=== PATIENT | female | born 1975 | race Hispanic/Latino ===

== ENCOUNTER 2024-06-13 07:27 | Emergency (ER) | payer SELFPAY ==
[~2024-06-13] VITALS: Ht 147.3 cm; Wt 101.2 kg
[2024-06-13 08:12] LABS: BASOPHILS # (AUTO) 0.01 K/uL (0.00-0.20); BASOPHILS % (AUTO) 0.1 % (0.0-5.0); EOSINOPHILS # (AUTO) 0.01 K/uL (0.00-0.70); EOSINOPHILS % (AUTO) 0.1 % (0.0-8.0); HEMATOCRIT 43.2 % (36-48); IMMATURE GRANULOCYTE ABSOLUTE 0.03 K/uL (0-1); LYMPHOCYTES # (AUTO) 1.2 K/uL (1.0-4.8); LYMPHOCYTES % (AUTO) 16.7 % (21.0-51.0); MEAN CORPUSCULAR HEMOGLOBIN 31.2 pg (27.0-33.0); MEAN CORPUSCULAR HGB CONC 33.6 g/dL (32.0-36.0); MEAN CORPUSCULAR VOLUME 92.9 fL (79-99); MONOCYTES # (AUTO) 0.4 K/uL (0.1-1.0); MONOCYTES % (AUTO) 5.8 % (3.0-13.0); NEUTROPHILS # (AUTO) 5.4 K/uL (1.8-7.7); NEUTROPHILS % (AUTO) 76.9 % (40.0-77.0); PLATELET COUNT (AUTO) 260 K/uL (130-400); RED BLOOD CELL COUNT(AUTO) 4.65 MIL/uL (4.00-5.50); RED CELL DISTRIBUTION WIDTH 12.8 % (11.0-15.5)
[2024-06-13] MEDS: Solu-medROL 125MG VIAL IVP ONE (08:17)
[2024-06-13] MEDS: FAMOTIDINE 20MG VIAL IV ONE (08:17)
[2024-06-13] MEDS: 0.9%NACL 1000ML 1,000 ML IV ONE (08:17)
[2024-06-13] MEDS: DiphenhydrAMINE HCL 50 MG/ML VIAL IV ONE (08:17)
[2024-06-13 08:25] LABS: CREATININE 1.1 mg/dL (0.5-1.0); POTASSIUM 3.8 mmol/L (3.5-5.1)
[2024-06-13] MEDS ORDERED: PRED20TA3 PO (10:19)
[2024-06-13] MEDS ORDERED: EPIN0.3P3 IJ (10:19)
[2024-06-13 10:25] VITALS: BP 139/91; PULSE 91; RESP 18; TEMP 99.9; O2SAT 99
== END 2024-06-13 10:51 | disposition home or self-care (01) ==
LOC: EDH 07:27
DX: L50.0 Allergic urticaria (principal); T36.95XA Adverse effect of unspecified systemic antibiotic, initial encounter; Y92.89 Other specified places as the place of occurrence of the external cause
CPT/HCPCS: 99284; 96374; 96361; 96375; 80048; 85025; 36415; 93005; J1200; J3490; J7030; J2919

== ENCOUNTER 2024-11-27 18:14 | Emergency (ER) | payer SELFPAY ==
[~2024-11-27] VITALS: Ht 147.3 cm; Wt 91.2 kg
[~2024-11-27 18:14] MED LIST: EPIN0.3P3 IJ; PRED20TA3 PO
--- NOTE | 2024-11-27 19:37 | ERN ---
General Chief Complaint: Abnormal Labs Stated Complaint: ABNORMAL LABS Time Seen by MD: 18:22 Time Seen by Midlevel: 18:22 Source: patient History of Present Illness Initial Comments 49-year-old female who presents to the emergency department referred from PCP's office due to high glucose. Patient reports she has been taking her mothers Farxiga off and on for the past month. Patient's lab work was done on 11/13/2024 at PCP's office and was sent to the ER today due to hyperglycemia and ketones in the urine. The patient reports occasional blurry vision, frequent UTIs but denies any current symptoms, chest pain, abdominal pain, nausea, vomiting or further associated symptoms. Allergies: Coded Allergies: metronidazole (Unverified Allergy, Unknown, 11/27/24) Home Meds Active Scripts Cephalexin (Cephalexin) 500 Mg Tablet, 1 TAB PO BID for 7 Days, #14 TAB 0 Refills Prov:BRITTON SINGH 11/27/24 Epinephrine (Epipen 2-Desmond) 0.3 Mg/0.3 Ml Auto.injct, 0.3 MG IJ ONCE, #1 CARTRIDGE Prov:LISA MACIEL MD 06/13/24 Prednisone (Prednisone) 20 Mg Tablet, 20 MG PO DAILY for 5 Days, #5 TAB Prov:LISA MACIEL MD 06/13/24 Past Medical History Past Medical History: Diabetes-Type II Past Surgical History: None ROS Dictation Constitutional: Negative for fever,chills, and weight loss Eyes: Negative for injury, pain,redness, and discharge ENT: Negative for injury,pain or swelling Cardiovascular: Negative for chest pain, palpitations, and edema Respiratory: Negative for shortness of breath, cough, and wheezing, Abdomen/GI: Negative for abdominal pain, nausea, vomiting, diarrhea, and constipation Back: Negative for injury and pain : Negative for painful urination, bleeding or discharge MS/Extremity: Negative for injury and deformity Skin: Negative for rash, and discoloration Neuro: Negative for headache, weakness, numbness, tingling, and seizure Psych: Negative for suicide ideation, homicidal ideation, and hallucinations Physical Exam Physical Exam Dictation General: awake, alert, no acute distress Head/Face: Normocephalic, atraumatic Eyes: PERRL, EOMI, normal conjunctiva ENT: oral cavity clear, oral mucosa moist Neck: Supple, normal range of motion Cardiovascular: RRR, normal S1/S2 Respiratory: CTAB, no respiratory distress, no rales or wheezes Abdomen: Soft, non-tender, non-distended, normal bowel sounds, no guarding or rebound. Skin: Warm, dry, normal turgor, no rash MS/Extremity: Pulses equal, no cyanosis, neurovascular intact, FROM Neuro: COAx4, GCS 15, strength 5/5, CN 2-12 intact, normal cerebellar exam, normal gait Psych: Normal behavior, mood, and affect normal Results Laboratory and Microbiology Lab and Micro Result Laboratory Tests Test 11/27/24 20:05 11/27/24 21:39 White Blood Count 5.9 K/uL (4.8-10.8) Red Blood Count 4.74 MIL/uL (4.00-5.50) Hemoglobin 14.5 g/dL (12.0-16.0) Hematocrit 43.8 % (36-48) Mean Corpuscular Volume 92.4 fL (79-99) Mean Corpuscular Hemoglobin 30.6 pg (27.0-33.0) Mean Corpuscular Hemoglobin Concent 33.1 g/dL (32.0-36.0) Red Cell Distribution Width 12.3 % (11.0-15.5) Platelet Count 238 K/uL (130-400) Mean Platelet Volume 10.2 fL (7.5-10.5) Immature Granulocyte % (Auto) 0.3 % (0-1) Neutrophils (%) (Auto) 38.4 % (40.0-77.0) L Lymphocytes (%) (Auto) 50.7 % (21.0-51.0) Monocytes (%) (Auto) 7.3 % (3.0-13.0) Eosinophils (%) (Auto) 2.5 % (0.0-8.0) Basophils (%) (Auto) 0.8 % (0.0-5.0) Neutrophils # (Auto) 2.3 K/uL (1.8-7.7) Lymphocytes # (Auto) 3.0 K/uL (1.0-4.8) Monocytes # (Auto) 0.4 K/uL (0.1-1.0) Eosinophils # (Auto) 0.15 K/uL (0.00-0.70) Basophils # (Auto) 0.05 K/uL (0.00-0.20) Absolute Immature Granulocyte (auto 0.02 K/uL (0-1) Nucleated Red Blood Cells 0.0 % (0.0-0.19) Urine Color LIGHT-YELLOW (YELLOW) Urine Appearance CLOUDY (CLEAR) H Urine pH 6.5 (5.0-8.0) Urine Specific Mcconnell 1.019 (1.001-1.031) Urine Protein NEGATIVE mg/dL (NEGATIVE) Urine Glucose (UA) >=1000 mg/dL (NEGATIVE) H Urine Ketones 40 mg/dL (NEGATIVE) H Urine Occult Blood NEGATIVE (NEGATIVE) Urine Nitrate NEGATIVE (NEGATIVE) Urine Bilirubin NEGATIVE mg/dL (NEGATIVE) Urine Urobilinogen 0.2 mg/dL (0.2-1.0) Urine Leukocyte Esterase 500 Hamida/uL (NEGATIVE) H Urine RBC 11-25 /HPF (0-1) H Urine WBC 51-100 /HPF (0-1) H Urine Squamous Epithelial Cells FEW /HPF (0-2) Urine Other Crystals (Auto) 2 /HPF (None Seen) Urine Bacteria RARE /HPF (None Seen) Urine Yeast RARE /HPF (None Seen) Sodium Level 139 mmol/L (136-145) Potassium Level 3.9 mmol/L (3.5-5.1) Chloride Level 99 mmol/L (101-111) L Carbon Dioxide Level 29 mmol/L (21-32) Blood Urea Nitrogen 12 mg/dL (7-18) Creatinine 0.9 mg/dL (0.5-1.0) Glomerular Filtration Rate Calc 79 mL/min (>90) Random Glucose 309 mg/dL (70-105) H Total Calcium 9.2 mg/dL (8.5-10.1) Blood Gas Specimen Type Venous Arterial Blood Oxygen Saturation 40.4 % (94.0-98.0) L Venous Blood pH 7.378 (7.320-7.430) Venous Blood pCO2 at Patient Temp 39 (38-54) Venous Blood pO2 at Patient Temp 23.5 mmHg (23.0-48.0) Venous Blood HCO3 22.2 (22.0-29.0) Venous Blood Base Excess -2.6 (-2.0-3.0) L Blood Gas Temperature 37.0 CELSIUS (35.5-37.0) Blood Gas Vent Mode ROOMAIR (ROOM AIR) FiO2 21.0 % Blood Gas Specimen Comment RN REINA Labs Reviewed?: Yes MDM MDM: Differential diagnosis: Hyperglycemia, DKA, new onset diabetes, UTI Rationale: 49-year-old female who presents to the emergency department referred from PCP's office due to high glucose. Patient reports she has been taking her mothers Farxiga off and on for the past month. Patient's lab work was done on 11/13/2024 at PCP's office and was sent to the ER today due to hyperglycemia and ketones in the urine. The patient reports occasional blurry vision, frequent UTIs but denies any current symptoms, chest pain, abdominal pain, nausea, vomiting or further associated symptoms. Per physical examination patient is in no acute distress, normal examination. Labs obtained CBC normal, chemistry shows hyperglycemia with glucose of 309. UA shows ketones and glucose, positive for urinary tract infection. VBG normal pH, normal bicarb. No indication of patient being in DKA. Patient was educated on findings, and diagnosis. She was administered IV fluids, Rocephin, and insulin in the ED. Admission versus outpatient discharge was discussed with patient. Patient verbalized she did not want to be admitted and would follow up with PCP outpatient tomorrow. She was educated on the importance of follow up with her PCP tomorrow. Return to the emergency department if any worsening symptoms. Patient verbalized understanding and is stable for discharge. There are no social concerns with this patient. I independently interpreted the test that were performed, results were reviewed by me and considered findings on radiology if ordered. Medical management and examination interpretation discussions were had by me with other qualified healthcare professionals as indicated for the patient's care. ED Course Orders Procedure Category Date Status Time Cbc With Differential LAB 11/27/24 Complete 18:27 Basic Metabolic Panel LAB 11/27/24 Complete 18:27 Urinalysis LAB 11/27/24 Complete W/Microscopic 18:27 Bedside Glucose CPOE 11/27/24 Transmitted Fingerstick 18:28 Culture Urine MARVIN 11/27/24 In Process 20:27 0.9%Nacl 1000ml (Ns PHA 11/27/24 Complete 1000ml) 21:00 Venous Blood Gas RT 11/27/24 Transmitted 20:40 Ceftriaxone 1g Vial PHA 11/27/24 Complete (Rocephine 1g Inj) 21:00 0.9%Nacl 1000ml (Ns PHA 11/27/24 Complete 1000ml) 21:30 Venous Blood Gas LAB 11/27/24 Complete 21:39 Insulin Regular, PHA 11/27/24 Complete Human 3ml (Humulin R 22:00 Current Medications Medications (Trade) Dose Ordered Sig/Addison Route PRN Reason Start Time Stop Time Status Last Admin Dose Admin Ceftriaxone Sodium (ROCEphine 1G INJ) 1 gm ONCE ONCE IVPB 11/27/24 21:00 11/27/24 21:01 DC 11/27/24 21:19 Insulin Human Regular (humuLIN R 100 UNIT/ML 3ML) 10 unit ONCE ONCE SQ 11/27/24 22:00 11/27/24 22:03 DC 11/27/24 22:44 Sodium Chloride 1,000 ml @ 0 mls/hr ONCE ONCE IV 11/27/24 21:00 11/27/24 21:01 DC 11/27/24 21:19 Sodium Chloride 1,000 ml @ 100 mls/hr Q10H IV 11/27/24 21:30 11/27/24 21:05 DC Vital Signs Date Time Temp Pulse Resp B/P (MAP) Pulse Ox O2 Delivery O2 Flow Rate FiO2 11/27/24 20:54 97.9 68 16 135/90 98 Room Air* 0 21 11/27/24 18:17 97.9 68 16 135/90 99 Room Air DX & DISP Disposition: Discharge Departure Impression: Primary Impression: Hyperglycemia Additional Impression: Urinary tract infection Condition: Stable Scripts Cephalexin (Cephalexin) 500 Mg Tablet 1 TAB PO BID for 7 Days, #14 TAB 0 Refills Prov: BRITTON SINGH 11/27/24 Additional Instructions: Discharge home. Rest. Follow up with primary care in 24 hours. Return to the ER for any acute changes or worsening symptoms. If any medications were prescribed take as directed. Okay to continue home medications unless otherwise discussed during your visit in the emergency room today. Patient was also advised to follow-up with primary care physician in 1 to 2 days for continued monitoring. Referrals: SELF,REFERRAL (PCP) I performed the substantive portion of the visit. I have reviewed and personally made and approve the management plan that is documented in the notes by myself or the BARBIE. I acknowledge full responsibility for the patient's management plan. BRITTON SINGH Nov 27, 2024 19:37
[2024-11-27 20:22] LABS: BASOPHILS # (AUTO) 0.05 K/uL (0.00-0.20); BASOPHILS % (AUTO) 0.8 % (0.0-5.0); EOSINOPHILS # (AUTO) 0.15 K/uL (0.00-0.70); EOSINOPHILS % (AUTO) 2.5 % (0.0-8.0); HEMATOCRIT 43.8 % (36-48); IMMATURE GRANULOCYTE ABSOLUTE 0.02 K/uL (0-1); LYMPHOCYTES % (AUTO) 50.7 % (21.0-51.0); MEAN CORPUSCULAR HEMOGLOBIN 30.6 pg (27.0-33.0); MEAN CORPUSCULAR HGB CONC 33.1 g/dL (32.0-36.0); MEAN CORPUSCULAR VOLUME 92.4 fL (79-99); MONOCYTES # (AUTO) 0.4 K/uL (0.1-1.0); MONOCYTES % (AUTO) 7.3 % (3.0-13.0); NEUTROPHILS # (AUTO) 2.3 K/uL (1.8-7.7); NEUTROPHILS % (AUTO) 38.4 % (40.0-77.0); PLATELET COUNT (AUTO) 238 K/uL (130-400); RED BLOOD CELL COUNT(AUTO) 4.74 MIL/uL (4.00-5.50); RED CELL DISTRIBUTION WIDTH 12.3 % (11.0-15.5); WHITE BLOOD COUNT (AUTO) 5.9 K/uL (4.8-10.8)
[2024-11-27 20:25] LABS: APPEARANCE,URINE CLOUDY (CLEAR); BILIRUBIN,URINE NEGATIVE (NEGATIVE); COLOR,URINE LIGHT-YELLOW (YELLOW); GLUCOSE, URINE (UA) >=1000 mg/dL (NEGATIVE); KETONES,URINE 40 mg/dL (NEGATIVE); LEUKOCYTE ESTERASE ,URINE 500 Leu/uL (NEGATIVE); NITRATE,URINE NEGATIVE (NEGATIVE); OCCULT BLOOD,URINE NEGATIVE (NEGATIVE); PH,URINE 6.5 (5.0-8.0); PROTEIN,URINE NEGATIVE (NEGATIVE); UROBILINOGEN,URINE 0.2 mg/dL (0.2-1.0)
[2024-11-27 20:28] LABS: BACTERIA,URINE RARE /HPF (None Seen); MUCUS,URINE RARE LPF (None Seen); SQUAMOUS EPITHELIAL CELL,UR FEW /HPF (0-2); UNCLASSIFIED CRYSTAL 2 /HPF (None Seen); WBC,URINE 51-100 /HPF (0-1); YEAST,URINE BUDDING RARE /HPF (None Seen)
[2024-11-27 20:37] LABS: CREATININE 0.9 mg/dL (0.5-1.0); POTASSIUM 3.9 mmol/L (3.5-5.1)
[2024-11-27 20:54] VITALS: BP 135/90; PULSE 68; RESP 16; TEMP 97.8; O2SAT 98
[2024-11-27] MEDS: 0.9%NACL 1000ML 1,000 ML IV ONE (21:19)
[2024-11-27] MEDS: cefTRIAXone 1G VIAL IVPB ONE (21:19)
[2024-11-27] MEDS ORDERED: 0.9%NACL 1000ML 1,000 ML IV SCH (21:30)
[2024-11-27 21:40] LABS: ABG OXYGEN SATURATION 40.4 % (94.0-98.0); BASE EXCESS,VENOUS BLOOD GAS -2.6 (-2.0-3.0); DEVICE COMMENT RN PETE; HCO3,VENOUS BLOOD GAS 22.2 (22.0-29.0); PCO2,VENOUS BLOOD GAS 39 (38-54); PH,VENOUS BLOOD GAS 7.378 (7.320-7.430); PO2,VENOUS BLOOD GAS 23.5 mmHg (23.0-48.0); VENT MODE, BG ROOMAIR (ROOM AIR)
[2024-11-27] MEDS ORDERED: CEPH500T PO (22:09)
[2024-11-27] MEDS: INSULIN humuLIN R 100 UNIT/ML 3ML SQ ONE (22:44)
== END 2024-11-27 22:47 | disposition home or self-care (01) ==
LOC: EDH 18:14
DX: E11.65 Type 2 diabetes mellitus with hyperglycemia (principal); N39.0 Urinary tract infection, site not specified; Z79.52 Long term (current) use of systemic steroids; Z87.440 Personal history of urinary (tract) infections; Z88.1 Allergy status to other antibiotic agents
CPT/HCPCS: 99284; 96374; 80048; 82803; 85025; 87086; 81001; 36415; 36600; 96372; J1815; J7030; J0696